=== PATIENT | male | born 1955 | race Caucasian/White ===

== ENCOUNTER → 2021-10-11 | Outpatient (CLI) | payer SELFPAY ==
--- NOTE | 2021-10-11 09:20 | RAD_ITS ---
INDICATION: BACK PAIN EXAMINATION/TECHNIQUE: X-RAY - XR Spine Thoracic 3 Views COMPARISON: None. FINDINGS: Compression fracture of the T7 vertebral body is visualized. Mild kyphosis of the upper thoracic spine visualized with apex along the posterior aspect of the T7 vertebral body. Mild levoscoliosis of the columns of the thoracic spine visualized with apex along the left lateral aspect of the T7 vertebral body. Multilevel degenerative endplate changes visualized with anterior osteophyte formation. No evidence of spondylolisthesis is seen. Limited evaluation of the heart and lung byrnes is unremarkable. RAD/Thoracic Spine 3 Views IMPRESSION: Compression fracture of the T7 vertebral body. Electronically Signed: Uriel Beverly MD at 12:14 EDT ,
--- NOTE | 2021-10-11 09:20 | RAD_ITS ---
INDICATION: BACK PAIN EXAMINATION/TECHNIQUE: X-RAY - XR Spine Lumbar Min 4 Views COMPARISON: None. FINDINGS: Mild exaggeration of the normal lordosis of the columns of the lumbar spine is visualized. Mild dextroscoliosis of the lumbar spine seen with the apex along the right lateral aspect of the L2-3 intervertebral disc space. No evidence of compression deformity of the lumbar vertebral bodies. Multilevel degenerative endplate changes are seen, no evidence of spondylolisthesis is seen. Oblique images demonstrate no evidence of pars interarticularis fracture. Increased density visualized in the posterior column most prominent at L5 consistent with hypertrophic changes in the facet joints. Scattered stool visualized in the bowel loops, no evidence of bowel distention to suggest obstruction. Atherosclerotic calcifications visualized in the abdominal/pelvic vessels. RAD/L/S Spine Min 4 Views IMPRESSION: Degenerative changes, no evidence of lumbar spinal fracture or spondylolisthesis. Electronically Signed: Uriel Beverly MD at 12:12 EDT ,
== END | disposition home or self-care (01) ==
DX: M99.02 Segmental and somatic dysfunction of thoracic region (principal); M99.03 Segmental and somatic dysfunction of lumbar region; M99.04 Segmental and somatic dysfunction of sacral region
CPT/HCPCS: 72072; 72110